=== PATIENT | male | born 1975 | race Caucasian/White ===

== ENCOUNTER → 2019-08-19 | Outpatient (CLI) | payer MEDICARE ==
[~2019-08-19] MED LIST: DRON5; DULO60; DULO60 PO; DULOXETINE HCL60 MG PO; GABA300 PO; GABA600 PO; HYDR1TAB94 PO; IBUP800 PO; METO10 PO; MORP30 PO; ONDA4 PO; ONDA4ODT MM; PREG200 PO; Percocet 5-3251 EACH PO; Prednisone20 MG PO; QUET100; TOPI25 PO; TRAZ100 PO
[2019-08-19 13:38] LABS: BASOPHILS ABSOLUTE AUTO 0.04 K/mm3 (0.00-0.23); BASOPHILS PERCENT AUTO 1 % (0-2); EOSINOPHILS ABSOLUTE AUTO 0.13 K/mm3 (0.00-0.68); EOSINOPHILS PERCENT AUTO 2 % (0-6); Hematocrit 42.7 % (37.0-53.0); Hemoglobin 14.4 g/dL (13.5-17.5); IMMATURE GRAN ABSOLUTE AUTO 0.03 K/mm3 (0.00-0.10); IMMATURE GRAN PERCENT AUTO 0 % (0-1); LYMPHOCYTES ABSOLUTE AUTO 1.69 K/mm3 (0.84-5.20); LYMPHOCYTES PERCENT AUTO 22 % (21-46); MONOCYTES ABSOLUTE AUTO 0.51 K/mm3 (0.16-1.47); MONOCYTES PERCENT AUTO 7 % (4-13); Mean Corpuscular HGB 31.3 pg (26.0-34.0); Mean Corpuscular HGB Conc 33.7 g/dL (31.5-36.5); Mean Corpuscular Volume 93 fL (80-100); Mean Platelet Volume 9.2 fL (9.1-12.4); NEUTROPHILS PERCENT AUTO 69 % (41-73); Platelet Count 367 K/mm3 (150-400); RDW Coefficient Variation 13.9 % (11.7-14.2); RDW Standard Deviation 47.1 fL (35.1-46.3)
[2019-08-19 15:08] LABS: Alanine Aminotransfer (ALT/SGP 20 U/L (12-78); Albumin, Blood 4.6 g/dL (3.4-5.0); Albumin/Globulin Ratio 1.1 (0.8-1.8); Alk Phos 57 U/L (40-126); Anion Gap 14 mmol/L (6-16); Aspartate Aminotrans (AST/SGOT 23 U/L (12-37); Bilirubin, Total 0.5 mg/dL (0.1-1.0); Blood Urea Nitrogen 16 mg/dL (8-24); Bun/Creatinine Ratio 14.2 (12.0-20.0); CO2, Blood 26 mmol/L (21-32); Chloride, Blood 102 mmol/L (98-108); Creatinine, Blood 1.13 mg/dL (0.60-1.20); Globulin, Blood 4.2 g/dL (2.2-4.0); Glomerular Filtration Rate >60 (60-); Glucose, Blood 98 mg/dL (70-99); Potassium, Blood 4.3 mmol/L (3.5-5.5); Sodium, Blood 142 mmol/L (136-145); Total Protein, Blood 8.8 g/dL (6.4-8.2)
[2019-08-20 10:10] LABS: HIV SCREEN 4TH GENERATION WRFX Non Reactive (Non Reactive)
== END | disposition home or self-care (01) ==
LOC: LAB SHORT 13:34 → LAB EV 13:34
PROVIDERS: General Practice
DX: J02.9 Acute pharyngitis, unspecified (principal); Z20.2 Contact with and (suspected) exposure to infections with a predominantly sexual mode of transmission
CPT/HCPCS: 80053; 85025; 86592; 87081; 87389

== ENCOUNTER → 2020-05-03 | Outpatient (CLI) | payer MEDICARE | END | disposition home or self-care (01) | LOC: LAB SHORT 12:57 → PLD 12:57 | DX: R07.0 Pain in throat (principal) | CPT/HCPCS: 87081 ==

== ENCOUNTER → 2022-05-16 | Outpatient (CLI) | payer MEDICARE ==
[2022-05-16 16:06] LABS: BASOPHILS ABSOLUTE AUTO 0.08 K/mm3 (0.00-0.23); BASOPHILS PERCENT AUTO 1 % (0-2); EOSINOPHILS ABSOLUTE AUTO 0.31 K/mm3 (0.00-0.68); EOSINOPHILS PERCENT AUTO 5 % (0-6); Hematocrit 42.5 % (37.0-53.0); Hemoglobin 14.3 g/dL (13.5-17.5); IMMATURE GRAN ABSOLUTE AUTO 0.01 K/mm3 (0.00-0.10); IMMATURE GRAN PERCENT AUTO 0 % (0-1); LYMPHOCYTES ABSOLUTE AUTO 2.41 K/mm3 (0.84-5.20); LYMPHOCYTES PERCENT AUTO 39 % (21-46); MONOCYTES ABSOLUTE AUTO 0.56 K/mm3 (0.16-1.47); MONOCYTES PERCENT AUTO 9 % (4-13); Mean Corpuscular HGB 31.2 pg (26.0-34.0); Mean Corpuscular HGB Conc 33.6 g/dL (31.5-36.5); Mean Corpuscular Volume 93 fL (80-100); Mean Platelet Volume 9.4 fL (9.1-12.4); NEUTROPHILS ABSOLUTE AUTO 2.85 K/mm3 (1.96-9.15); NEUTROPHILS PERCENT AUTO 46 % (41-73); Platelet Count 332 K/mm3 (150-400); RDW Coefficient Variation 14.2 % (11.7-14.2); RDW Standard Deviation 48.8 fL (35.1-46.3); Red Blood Cell Count 4.58 M/mm3 (4.30-5.90); White Blood Cell Count 6.22 K/mm3 (4.00-11.30)
[2022-05-16 16:50] LABS: Alanine Aminotransfer (ALT/SGP 32 U/L (12-78); Albumin, Blood 4.1 g/dL (3.4-5.0); Alk Phos 46 U/L (50-136); Anion Gap 1 mmol/L (6-16); Aspartate Aminotrans (AST/SGOT 21 U/L (12-37); Bilirubin, Total 0.5 mg/dL (0.1-1.0); Blood Urea Nitrogen 16 mg/dL (8-24); Bun/Creatinine Ratio 14.4 (12.0-20.0); CHOL/HDL RATIO 4.2; CO2, Blood 27 mmol/L (21-32); Calcium, Blood 9.1 mg/dL (8.5-10.1); Chloride, Blood 107 mmol/L (98-108); Cholesterol 271 mg/dL (50-200); Creatinine, Blood 1.11 mg/dL (0.60-1.20); Ferritin, Serum 71 ng/mL (26-388); Globulin, Blood 4.2 g/dL (2.2-4.0); Glomerular Filtration Rate 84 (60-); Glucose, Blood 95 mg/dL (70-99); HDL Cholesterol 64 mg/dL (>39); Iron Serum 115 ug/dL (65-175); Low Density Lipoprotein Chol 191 mg/dL (0-110); Percent Saturation 35.6 % (20.0-50.0); Sodium, Blood 135 mmol/L (136-145); Total Iron Binding Capacity 323 ug/dL (250-450); Total Protein, Blood 8.3 g/dL (6.4-8.2); Triglycerides 79 mg/dL (30-160); Very Low Density Lipoprot Chol 15 mg/dL (6-32)
== END | disposition home or self-care (01) ==
LOC: LAB SHORT 14:49 → LAB 14:49
PROVIDERS: Family Medicine
DX: Z13.6 Encounter for screening for cardiovascular disorders (principal); Z00.00 Encounter for general adult medical examination without abnormal findings; K92.1 Melena; R10.12 Left upper quadrant pain
CPT/HCPCS: 80053; 80061; 82728; 83540; 83550; 83690; 85025

== ENCOUNTER 2022-11-19 12:52 | Emergency (ER) | payer OTHER, MEDICARE ==
[~2022-11-19] VITALS: Ht 185.4 cm; Wt 99.8 kg
[2022-11-19] MEDS ORDERED: PRILOSEC OTC20 MG PO (15:11)
[2022-11-19] MEDS ORDERED: FLUT.05NI (15:11)
[2022-11-19] MEDS ORDERED: Robaxin750 MG PO (15:12)
[2022-11-19] MEDS ORDERED: IBUP800 PO (15:12)
[2022-11-19 15:22] VITALS: BP 132/92
== END 2022-11-19 15:22 | disposition home or self-care (01) ==
LOC: ER 12:52
DX: S16.1XXA Strain of muscle, fascia and tendon at neck level, initial encounter (principal); V49.60XA Unspecified car occupant injured in collision with unspecified motor vehicles in traffic accident, initial encounter; Z88.8 Allergy status to other drugs, medicaments and biological substances; Z87.891 Personal history of nicotine dependence
CPT/HCPCS: 72125; 99284-25